=== PATIENT | female | born 1980 | race Caucasian/White ===

== ENCOUNTER 2017-05-01 19:52 | Emergency (ER) | payer MEDICAID ==
[~2017-05-01 19:52] MED LIST: GABAPENTIN100 MG PO; PAMELOR75 MG PO; PHENERGAN25 M1 PO; PRENATAL COMPLE1 TAB PO; PROBIOTIC1 EAC1 PO; THORAZINE50 MG PO; VENTOLIN HFA18 GM INH; VITAMIN B650 MG PO
== END 2017-05-01 22:00 | disposition home or self-care (01) ==
LOC: D.ER 19:52
DX: M54.5 Low back pain (principal)

== ENCOUNTER 2017-06-13 00:47 | Emergency (ER) | payer MEDICAID | END 2017-06-13 02:15 | disposition home or self-care (01) | LOC: D.ER 00:47 | DX: R11.10 Vomiting, unspecified (principal); R19.7 Diarrhea, unspecified; M25.532 Pain in left wrist; L01.00 Impetigo, unspecified ==

== ENCOUNTER 2017-08-22 17:26 | Emergency (ER) | payer MEDICAID | END 2017-08-22 18:52 | disposition home or self-care (01) | LOC: D.ER 17:26 | DX: S00.83XA Contusion of other part of head, initial encounter (principal); W51.XXXA Accidental striking against or bumped into by another person, initial encounter; Y93.89 Activity, other specified; Y92.029 Unspecified place in mobile home as the place of occurrence of the external cause; R21 Rash and other nonspecific skin eruption; F17.200 Nicotine dependence, unspecified, uncomplicated ==

== ENCOUNTER 2017-09-24 11:59 | Emergency (ER) | payer MEDICAID | END 2017-09-24 15:35 | disposition home or self-care (01) | LOC: D.ER 11:59 | DX: F41.9 Anxiety disorder, unspecified (principal) ==

== ENCOUNTER 2017-10-29 21:53 | Emergency (ER) | payer MEDICAID | END 2017-10-30 00:10 | disposition home or self-care (01) | LOC: D.ER 21:53 | DX: L02.214 Cutaneous abscess of groin (principal) ==

== ENCOUNTER 2018-01-09 14:53 | Emergency (ER) | payer MEDICAID | END 2018-01-09 16:09 | disposition home or self-care (01) | LOC: D.ER 14:53 | DX: S59.901A Unspecified injury of right elbow, initial encounter (principal); X58.XXXA Exposure to other specified factors, initial encounter; Y93.89 Activity, other specified; Y92.89 Other specified places as the place of occurrence of the external cause; F17.200 Nicotine dependence, unspecified, uncomplicated ==

== ENCOUNTER → 2018-01-22 12:44 | Outpatient (CLI) | payer MEDICAID ==
[2018-01-26 12:19] LABS: METAN - URINE 36 ug/L (Undefined); METAN - URINE 24HR 61 ug/24 hr (45-290)
[2018-01-27 07:31] LABS: CORTISOL FREE - 24HR 14 ug/24 hr (0-50); CORTISOL FREE - UR 8 ug/L (Undefined)
[2018-01-27 11:19] LABS: VMA - URINE 1.7 mg/L (Undefined)
[2018-01-28 14:26] LABS: ALDOSTERONE - 24HR <4.25 ug/24 hr (0.00-19.00); ALDOSTERONE - UR <2.50 ug/L (Not Estab.)
== END | disposition home or self-care (01) ==
LOC: D.LAB 12:44
PROVIDERS: Surgery
DX: E27.8 Other specified disorders of adrenal gland (principal)

== ENCOUNTER → 2018-04-14 08:00 | Outpatient (CLI) | payer MEDICAID | END | disposition home or self-care (01) | LOC: D.CT 08:00 | DX: E27.9 Disorder of adrenal gland, unspecified (principal) ==

== ENCOUNTER → 2018-08-06 12:44 | Outpatient (CLI) | payer MEDICAID | END | disposition home or self-care (01) | LOC: D.MRI 12:44 | DX: M25.561 Pain in right knee (principal) ==

== ENCOUNTER 2018-10-10 21:12 | Emergency (ER) | payer SELFPAY ==
[~2018-10-10] VITALS: Ht 165.1 cm; Wt 77.1 kg
[2018-10-10 21:21] VITALS: Ht 165.1 cm; Wt 77.1 kg
[2018-10-10] MEDS ORDERED: EFFEXOR XR75 MG PO (21:23)
[2018-10-10] MEDS ORDERED: INDERAL 40 MG T40 MG PO (21:23)
[2018-10-10] MEDS ORDERED: OMEPRAZOLE20 M1 PO (21:23)
[2018-10-10] MEDS ORDERED: EFFEXOR XR37.5 MG (21:23)
[2018-10-11 02:07] LABS: APPEARANCE CLEAR (CLEAR); BILIRUBIN NEGATIVE (NEGATIVE); COLOR YELLOW (YELLOW); GLUCOSE NEGATIVE (NEGATIVE); KETONE SMALL mg/dL (NEGATIVE); NITRITE POSITIVE (NEGATIVE); PROTEIN NEGATIVE (NEGATIVE); UROBILINOGEN NORMAL (NORMAL)
[2018-10-11 02:10] LABS: BACTERIA MANY /hpf (NONE SEEN); EPITHELIAL CELLS OCC /hpf (0-5); RED CELLS - URINE RARE /hpf (0-5); WHITE CELLS - URINE 0-5 /hpf (0-5)
[2018-10-11 02:12] LABS: UDS - AMPHET POSITIVE QUAL (NEGATIVE); UDS - BARB NEGATIVE QUAL (NEGATIVE); UDS - BENZO NEGATIVE QUAL (NEGATIVE); UDS - COCAINE NEGATIVE QUAL (NEGATIVE); UDS - OPIATE NEGATIVE QUAL (NEGATIVE); UDS - PCP NEGATIVE QUAL (NEGATIVE); UDS - THC POSITIVE QUAL (NEGATIVE)
[2018-10-11] MEDS ORDERED: NAPROSYN500 MG PO (02:31)
[2018-10-11] MEDS ORDERED: STERAPRED DS 1010 MG PO (02:31)
[2018-10-11] MEDS ORDERED: MACROBID100 MG PO (02:31)
[2018-10-11 02:50] VITALS: BP 148/85
== END 2018-10-11 02:50 | disposition home or self-care (01) ==
LOC: D.ER 21:12
PROVIDERS: Family Medicine
DX: N39.0 Urinary tract infection, site not specified (principal); M54.32 Sciatica, left side; F19.10 Other psychoactive substance abuse, uncomplicated; I10 Essential (primary) hypertension; F17.200 Nicotine dependence, unspecified, uncomplicated

== ENCOUNTER 2019-09-03 16:12 | Emergency (ER) | payer SELFPAY ==
[~2019-09-03] VITALS: Ht 165.1 cm; Wt 75.0 kg
[~2019-09-03 16:12] MED LIST changes: +EFFEXOR XR37.5 MG; +EFFEXOR XR75 MG PO; +INDERAL 40 MG T40 MG PO; +MACROBID100 MG PO; +NAPROSYN500 MG PO; +OMEPRAZOLE20 M1 PO; +STERAPRED DS 1010 MG PO
[2019-09-03 16:46] VITALS: Ht 165.1 cm; Wt 75.0 kg
[2019-09-03] MEDS ORDERED: TORADOL10 MG PO (18:07)
[2019-09-03 18:37] VITALS: BP 125/74
== END 2019-09-03 18:38 | disposition home or self-care (01) ==
LOC: D.ER 16:12
DX: M25.561 Pain in right knee (principal); X58.XXXA Exposure to other specified factors, initial encounter; Y93.9 Activity, unspecified; Y92.9 Unspecified place or not applicable; I10 Essential (primary) hypertension; Z72.0 Tobacco use; J45.909 Unspecified asthma, uncomplicated